=== PATIENT | female | born 1940 | race Caucasian/White ===

== ENCOUNTER 2025-04-07 20:57 | Observation (INO) ==
[2025-04-07 22:06] LABS: Basophils # (Auto) 0.01 K/mcL (0.00-0.30); Basophils % (Auto) 0.3 % (0.0-2.0); Eosinophils # (Auto) 0.02 K/mcL (0.00-0.70); Eosinophils % (Auto) 0.5 % (0.0-7.0); Hematocrit 34.9 % (34.1-44.9); Hemoglobin 11.3 g/dL (11.2-15.7); Lymphocytes # (Auto) 1.20 K/mcL (1.50-4.80); Lymphocytes % (Auto) 31.2 % (15.5-49.0); Mean Corpuscular HGB Conc 32.4 g/dL (31.0-36.0); Monocytes # (Auto) 0.95 K/mcL (0.10-0.90); Monocytes % (Auto) 24.7 % (1.0-12.0); Neutrophils % (Auto) 40.4 % (38.0-78.0); Platelet Count 132 K/mcL (140-440); RBC 3.82 M/mcL (3.59-5.38); WBC 3.9 K/mcL (4.5-11.0)
[2025-04-07 22:17] LABS: Anion Gap 9.0 (8.0-16.0); Blood Urea Nitrogen 13 mg/dL (8-23); Calcium 8.6 mg/dL (8.6-10.4); Carbon Dioxide 27 mmol/L (22-30); Chloride 99 mmol/L (96-108); Glucose 101 mg/dL (70-105); Potassium 3.8 mmol/L (3.3-5.1); Sodium 135 mmol/L (133-145)
[2025-04-07] MEDS: HYDROmorphone 0.5 MG/0.5 ML SYRINGE IV ONE (22:32)
[2025-04-07] MEDS: MIDAZOLAM 5 MG/5 ML VIAL IV ONE (23:49)
[2025-04-08] MEDS ORDERED: LACTATED RINGERS 1,000 ML IV SCH (00:30)
[2025-04-08] MEDS: LACTATED RINGERS 1,000 ML IV SCH ×2 (00:52→16:16)
[2025-04-08] MEDS: HYDROmorphone 0.5 MG/0.5 ML SYRINGE IV PRN ×2 (00:53→07:36)
[2025-04-08] MEDS: ACETAMINOPHEN 650 MG/65 ML BAG IV PRN (02:26)
[2025-04-08] MEDS ORDERED: PROPOFOL 200 MG/20 ML VIAL IV ONE ×2 (10:11→11:10)
[2025-04-08] MEDS ORDERED: fentaNYL 100 MCG/2 ML VIAL ONE ×2 (10:11→11:10)
[2025-04-08] MEDS ORDERED: MAGNESIUM SULFATE 2 GM/50 ML BAG IV ONE (10:13)
[2025-04-08] MEDS ORDERED: LIDOCAINE 2% PF 5 ML VIAL ONE ×2 (10:13→11:10)
[2025-04-08] MEDS ORDERED: ONDANSETRON 4 MG/2 ML VIAL ONE ×2 (10:13→11:10)
[2025-04-08] MEDS ORDERED: GLYCOPYRROLATE 0.2 MG/ML VIAL IV ONE ×2 (10:13→11:10)
[2025-04-08] MEDS ORDERED: FAMOTIDINE/PF 20 MG/2 ML VIAL IV ONE (10:13)
[2025-04-08] MEDS ORDERED: DEXAMETHASONE 10 MG/ML VIAL ONE ×2 (10:13→11:10)
[2025-04-08] MEDS: ONDANSETRON 4 MG/2 ML VIAL IV PRN (10:36)
[2025-04-08] MEDS ORDERED: SUGAMMADEX SODIUM 200 MG/2 ML VIAL IV ONE (11:10)
[2025-04-08] MEDS ORDERED: ROCURONIUM 10 MG/ML ML IV ONE (11:10)
[2025-04-08] MEDS: ceFAZolin 2 GM in DEXTROSE 5% IN WATER 50 ML IV SCH (12:26)
[2025-04-08] MEDS ORDERED: PHENYLephrine 1 MG/10 ML SYRINGE (ANEST) ONE (12:40)
[2025-04-08] MEDS ORDERED: ePHEDrine 50 MG/5 ML SYRINGE (ANEST) IV ONE (12:45)
[2025-04-08] MEDS ORDERED: ROPIVACAINE HCL/PF 30 ML VIAL IJ ONE (12:46)
[2025-04-08] MEDS ORDERED: TRANEXAMIC ACID 1,000 MG/10 ML VIAL ONE ×2 (12:49→14:08)
[2025-04-08] MEDS ORDERED: ONDANSETRON 4 MG/2 ML VIAL IV PRN (13:35)
[2025-04-08] MEDS ORDERED: IPRATROPIUM/ALBUTEROL 3 ML AMPUL.NEB NEB PRN (13:35)
[2025-04-08] MEDS ORDERED: SENNOSIDES 1 TABLET PO PRN (14:05)
[2025-04-08] MEDS ORDERED: NITROGLYCERIN 0.4 MG TAB.SUBL SL PRN (14:20)
[2025-04-08] MEDS: 0.9 % SODIUM CHLORIDE 10 ML SYRINGE IV SCH (16:17)
[2025-04-08] MEDS: GABAPENTIN 100 MG CAPSULE PO SCH (16:17)
[2025-04-08] MEDS: ESTRADIOL VAG CREAM 42GM TUBE TOPICAL SCH (16:18)
[2025-04-08] MEDS: LEVOFLOXACIN 500 MG PO SCH (16:18)
[2025-04-08] MEDS: LEVOFLOXACIN 250 MG TABLET PO SCH (17:22)
[2025-04-09] MEDS: POTASSIUM CHLORIDE 10 MEQ TABLET PO SCH (07:22)
[2025-04-09] MEDS: LEVOTHYROXINE 75 MCG TABLET PO SCH (07:22)
[2025-04-09] MEDS: VITAMIN D3 25 MCG TABLET PO SCH (09:00)
[2025-04-09] MEDS: VITAMIN E (DL,TOCOPHERYL ACET) 400 UNIT CAPSULE PO SCH (09:00)
[2025-04-09] MEDS: ATENOLOL 50 MG TABLET PO SCH (09:00)
[2025-04-09] MEDS: LOSARTAN 50 MG TABLET PO SCH (09:01)
[2025-04-09] MEDS: ASCORBIC ACID 500 MG TABLET PO SCH (09:01)
[2025-04-09] MEDS: DILTIAZEM 180 MG CAP.XL.24H PO SCH (09:01)
[2025-04-09] MEDS: ARIPIPRAZOLE 5 MG TABLET PO SCH (09:01)
[2025-04-09] MEDS: ONDANSETRON 4 MG ODT TABLET SL PRN (09:51)
[2025-04-09] MEDS: FAMOTIDINE 20 MG TABLET PO SCH (09:57)
== END 2025-04-09 13:25 | disposition home or self-care (01) ==
LOC: MEDSUR 20:57 → ED 20:57 → MEDSUR 04-08 00:11
PROVIDERS: ADMIT Orthopaedic Surgery; ATTEND Orthopaedic Surgery